=== PATIENT | male | born 1995 | race Caucasian/White ===

== ENCOUNTER 2017-10-07 14:09 | Emergency (ER) | payer OTHER ==
[2017-10-07 14:48] LABS: PLATELET COUNT, AUTOMATED 218 K/uL (150-450)
--- NOTE | 2017-10-07 14:52 | ER Report ---
History and Physical Time Seen By MD: 14:18 Hx. of Stated Complaint: PT DOES NOT REMEMBER; FOUND WALKING AROUND CONFUSED WITH HELMET SMASHED; HEADACHE AND STIFF NECK HPI/ROS CHIEF COMPLAINT: Head injury HISTORY OF PRESENT ILLNESS: Patient is a 22-year-old male coming by a friend, who presents the ED with complaint of head injury that occurred about 2 hours ago. Patient states that he was snowboarding but is unable to remember a fall. His friend states that he did have a unwitnessed fall and damaged his helmet. He states that the patient was very confused initially but has been getting better now. He states that the patient did not know what town he was in or the year. Another state. Patient is now oriented 3. He denies any nausea or vomiting. He is having a little bit of neck pain more on the right side. He has not taken any medication. Patient denies any vision changes, numbness, tingling , dizziness. He states that he has had 2 concussions in the past and states it feels similar to that. REVIEW OF SYSTEMS: Constitutional: No fever, no chills. Cardiovascular: No chest pain, no palpitations. Respiratory: No cough, no shortness of breath. Gastrointestinal: No abdominal pain, no vomiting. Genitourinary: No hematuria. Musculoskeletal: See history of present illness. Skin: No rashes. Neurological: See history of present illness. Allergies: Coded Allergies: No Known Drug Allergies (Unverified , 10/07/17) Home Meds No Active Prescriptions or Reported Meds Reviewed Nurses Notes: Yes Old Medical Records Reviewed: Yes Constitutional Vital Sign - Last 24 Hours 10/07/17 14:21 Temp 99.0 Pulse 98 Resp 12 B/P (MAP) 140/93 Pulse Ox 85 O2 Delivery Room Air Physical Exam General Appearance: The patient is alert, has no immediate need for airway protection and no signs of toxicity. Patient appears to be in no acute distress. Eyes: Pupils equal and round no pallor or injection. EOMs are full bilaterally. ENT, Mouth: Mucous membranes are moist. Respiratory: There are no retractions, lungs are clear to auscultation. Cardiovascular: Regular rate and rhythm. Gastrointestinal: Abdomen is soft and non tender, no masses, bowel sounds normal. Neurological: Cranial nerves II-12 intact. Normal finger to nose test bilaterally. Normal Romberg. Skin: Warm and dry, no rashes. Musculoskeletal: Neck is supple. There is right paravertebral cervical tenderness with palpation. Full range of motion of the neck with some pain. Extremities are nontender, nonswollen and have full range of motion. DIFFERENTIAL DIAGNOSIS: After history and physical exam differential diagnosis was considered for head injury including but not limited to concussion, skull fracture, intraparenchymal contusion, subarachnoid, subdural and epidural hematoma. Medical Decision Making Data Points Result Diagram: 10/07/17 1434 10/07/17 1434 Laboratory Hematology Test 10/07/17 14:34 Red Blood Count 5.11 M/uL (4.00-5.60) Mean Corpuscular Volume 87.0 fL (80.0-96.0) Mean Corpuscular Hemoglobin 30.2 pg (26.0-33.0) Mean Corpuscular Hemoglobin Concent 34.8 g/dL (32.0-36.0) Red Cell Distribution Width 12.3 % (11.5-14.5) Mean Platelet Volume 7.9 fL (7.2-11.1) Neutrophils (%) (Auto) 80.6 % (39.4-72.5) Lymphocytes (%) (Auto) 11.1 % (17.6-49.6) Monocytes (%) (Auto) 6.5 % (4.1-12.4) Eosinophils (%) (Auto) 0.5 % (0.4-6.7) Basophils (%) (Auto) 1.3 % (0.3-1.4) Nucleated RBC Relative Count (auto) 0.0 /100WBC Neutrophils # (Auto) 8.3 K/uL (2.0-7.4) Lymphocytes # (Auto) 1.1 K/uL (1.3-3.6) Monocytes # (Auto) 0.7 K/uL (0.3-1.0) Eosinophils # (Auto) 0.0 K/uL (0.0-0.5) Basophils # (Auto) 0.1 K/uL (0.0-0.1) Nucleated RBC Absolute Count (auto) 0.00 K/uL Peripheral Blood Smear No Y/N Sodium Level 138 mmol/L (137-145) Potassium Level 3.9 mmol/L (3.5-5.0) Chloride Level 101 mmol/L (98-107) Carbon Dioxide Level 27 mmol/L (22-30) Blood Urea Nitrogen 18 mg/dl (9-21) Creatinine 1.00 mg/dl (0.66-1.25) Glomerular Filtration Rate Calc > 60.0 Random Glucose 103 mg/dl (75-110) Calcium Level 9.0 mg/dl (8.4-10.2) Total Bilirubin 0.3 mg/dl (0.2-1.3) Aspartate Amino Transf (AST/SGOT) 28 U/L (0-35) Alanine Aminotransferase (ALT/SGPT) 37 U/L (0-56) Alkaline Phosphatase 131 U/L (0-126) Total Protein 7.9 gm/dl (6.3-8.2) Albumin 4.3 g/dl (3.5-5.0) Chemistry Test 10/07/17 14:34 White Blood Count 10.3 k/uL (4.5-11.0) Red Blood Count 5.11 M/uL (4.00-5.60) Hemoglobin 15.5 g/dL (14.0-18.0) Hematocrit 44.5 % (42.0-52.0) Mean Corpuscular Volume 87.0 fL (80.0-96.0) Mean Corpuscular Hemoglobin 30.2 pg (26.0-33.0) Mean Corpuscular Hemoglobin Concent 34.8 g/dL (32.0-36.0) Red Cell Distribution Width 12.3 % (11.5-14.5) Platelet Count 218 K/uL (150-450) Mean Platelet Volume 7.9 fL (7.2-11.1) Neutrophils (%) (Auto) 80.6 % (39.4-72.5) Lymphocytes (%) (Auto) 11.1 % (17.6-49.6) Monocytes (%) (Auto) 6.5 % (4.1-12.4) Eosinophils (%) (Auto) 0.5 % (0.4-6.7) Basophils (%) (Auto) 1.3 % (0.3-1.4) Nucleated RBC Relative Count (auto) 0.0 /100WBC Neutrophils # (Auto) 8.3 K/uL (2.0-7.4) Lymphocytes # (Auto) 1.1 K/uL (1.3-3.6) Monocytes # (Auto) 0.7 K/uL (0.3-1.0) Eosinophils # (Auto) 0.0 K/uL (0.0-0.5) Basophils # (Auto) 0.1 K/uL (0.0-0.1) Nucleated RBC Absolute Count (auto) 0.00 K/uL Peripheral Blood Smear No Y/N Glomerular Filtration Rate Calc > 60.0 Calcium Level 9.0 mg/dl (8.4-10.2) Total Bilirubin 0.3 mg/dl (0.2-1.3) Aspartate Amino Transf (AST/SGOT) 28 U/L (0-35) Alanine Aminotransferase (ALT/SGPT) 37 U/L (0-56) Alkaline Phosphatase 131 U/L (0-126) Total Protein 7.9 gm/dl (6.3-8.2) Albumin 4.3 g/dl (3.5-5.0) EKG/Imaging Imaging CT Head and C-Spine: IMPRESSION: 1. No acute intracranial abnormality. 2. No acute osseous or acute alignment abnormality of the cervical spine. Report Dictated By: Bert Guerrero at 10/07/2017 3:20 PM Report E-Signed By: Bert Guerrero at 10/07/2017 3:27 PM ED Course/Re-evaluation ED Course Will obtain labs and CT of the head and C-spine. Patient was placed in a c- collar. 10/07/2017 4:42:12 pm - discussed all labs and imaging with patient. He has no intracranial abnormality or C-spine fracture. C-collar was removed. Discussed that he likely has a concussion. He does have some continued confusion but is now oriented 3. The confusion is likely due to concussion and discussed this with him. He will be staying with his fianc and friends tonight and discussed monitoring him at home. Discussed signs and symptoms of worsening head injury and to return the emergency department if having any concerns. Decision to Disposition Date: Oct 07, 2017 Decision to Disposition Time: 16:43 Depart Departure Latest Vital Signs Vital Signs Date Time Temp Pulse Resp B/P (MAP) Pulse Ox O2 Delivery O2 Flow Rate FiO2 10/07/17 14:21 99.0 98 12 140/93 85 Room Air Impression: Primary Impression: Head injury Additional Impression: Concussion Condition: Improved Disposition: HOME OR SELF-CARE New Scripts No Active Prescriptions or Reported Meds Patient Instructions: Concussion (ED), Head Injury (ED) Additional Instructions: Having any worsening headache, dizziness, vomiting should return to the emergency department. Follow-up to primary care provider in one to 2 days. For the next 24 hours should keep the patient awake every 1-2 hours and ensure that he is alert. ADMITTING REPRESENTATIVE/PA consult with MD: Verbally MD Consult Note: Dr. Lindsey, ED Problem Qualifiers Primary Impression: Head injury Encounter type: initial encounter Qualified Codes: S09.90XA - Unspecified injury of head, initial encounter Additional Impression: Concussion Encounter type: initial encounter Loss of consciousness presence/duration: with LOC of 30 min or less Qualified Codes: S06.0X1A - Concussion with loss of consciousness of 30 minutes or less, initial encounter DORIAN PETTY PA-C Oct 07, 2017 14:52
--- NOTE | 2017-10-07 15:32 | RADIOLOGY IMAGING REPORT ---
FACILITY: [facility] - [place] PATIENT NAME: Drake Alex : 1995 MR: [id number] V: [id number] EXAM DATE: [id number] ORDERING PHYSICIAN: DORIAN PETTY TECHNOLOGIST: Location: [facility] Patient: Drake Alex : 1995 Visit/Account:[id number] Date of Sevice: 10/07/2017 CT Head without contrast and CT Cervical spine: Indication: Head injury with headache and confusion and loss of consciousness. Comparison: None available Technique: CT head: Axial CT images were obtained through the brain from the skull base to the verte x without administration of IV contrast. Reformatted coronal and sagittal images were also obtained. Technique: CT cervical spine: Axial CT imaging of the cervical spine was performed. 2-D sagittal and coronal CT reformats were also obtained. One of the following dose optimization techniques was utilized in the performance of this exam: Autom ated exposure control; adjustment of the mA and/or kV according to the patient's size; or use of an i terative reconstruction technique. Specific details can be referenced in the facility's radiology C T exam operational policy. FINDINGS: CT head: No intracranial bleed, midline shift, mass effect, extra-axial fluid collection or hydrocephalus. No abnormal density. Huizar/white matter differentiation appears normal. Bony structures show no fractures or lesions. Mild rightward deviation nasal septum. Sinuses and mastoids visualized are clear. CT cervical spine: Vertebral bodies are aligned. No fracture or facet dislocation. Mild reverse curvature. No bony lesio ns or significant degenerative changes. The end plates are maintained. No obvious disc herniation. Pr evertebral soft tissues and surrounding soft tissues are unremarkable. Lung apices are clear. IMPRESSION: 1. No acute intracranial abnormality. 2. No acute osseous or acute alignment abnormality of the cervical spine. Report Dictated By: Bert Guerrero at 10/07/2017 3:20 PM Report E-Signed By: Bert Guerrero at 10/07/2017 3:27 PM WSN:[id number]
--- NOTE | 2017-10-07 15:32 | RADIOLOGY IMAGING REPORT ---
[place] [facility] [place] Drake Alex : 1995 MR: [id number] V: [id number] EXAM DATE: [id number] ORDERING PHYSICIAN: DORIAN PETTY TECHNOLOGIST: Location: [facility] Patient: Drake Alex : 1995 Visit/Account:[id number] Date of Sevice: 10/07/2017 CT Head without contrast and CT Cervical spine: Indication: Head injury with headache and confusion and loss of consciousness. Comparison: None available Technique: CT head: Axial CT images were obtained through the brain from the skull base to the verte x without administration of IV contrast. Reformatted coronal and sagittal images were also obtained. Technique: CT cervical spine: Axial CT imaging of the cervical spine was performed. 2-D sagittal and coronal CT reformats were also obtained. One of the following dose optimization techniques was utilized in the performance of this exam: Autom ated exposure control; adjustment of the mA and/or kV according to the patient's size; or use of an i terative reconstruction technique. Specific details can be referenced in the facility's radiology C T exam operational policy. FINDINGS: CT head: No intracranial bleed, midline shift, mass effect, extra-axial fluid collection or hydrocephalus. No abnormal density. Huizar/white matter differentiation appears normal. Bony structures show no fractures or lesions. Mild rightward deviation nasal septum. Sinuses and mastoids visualized are clear. CT cervical spine: Vertebral bodies are aligned. No fracture or facet dislocation. Mild reverse curvature. No bony lesio ns or significant degenerative changes. The end plates are maintained. No obvious disc herniation. Pr evertebral soft tissues and surrounding soft tissues are unremarkable. Lung apices are clear. IMPRESSION: 1. No acute intracranial abnormality. 2. No acute osseous or acute alignment abnormality of the cervical spine. Report Dictated By: Bert Guerrero at 10/07/2017 3:20 PM Report E-Signed By: Bert Guerrero at 10/07/2017 3:27 PM WSN:[id number]
[2017-10-07 16:48] VITALS: BP 138/103
== END 2017-10-07 17:10 | disposition home or self-care (01) ==
LOC: ER 14:11
DX: S06.0X1A Concussion with loss of consciousness of 30 minutes or less, initial encounter (principal)
CPT/HCPCS: 70450; 72125; 85025; 99284; L0172; 82040; 82247; 82310; 82374; 82435; 82565; 82947; 84075; 84132; 84155; 84295; 84450; 84460; 84520